=== PATIENT | female | born 1950 | race Caucasian/White ===

== ENCOUNTER 2023-08-01 05:38 | Emergency (ER) | payer BC ==
[~2023-08-01] VITALS: Ht 160 cm; Wt 75.9 kg
[2023-08-01 05:52] VITALS: TEMP 97.7
[2023-08-01 08:47] LABS: BASOPHILS % (AUTO) 0.6 % (0-1); EOSINOPHILS # (AUTO) 0.1 X10'3 (0-0.9); EOSINOPHILS % (AUTO) 1.7 % (0-6); HEMOGLOBIN 15.6 g/dl (12.0-16.0); LYMPHOCYTES # (AUTO) 1.5 X10'3 (1.1-4.8)
[2023-08-01 08:49] LABS: HEMATOCRIT 45.6 % (35.0-45.0); LYMPHOCYTES % (AUTO) 26.5 % (21-51); MEAN CORPUSCULAR HGB CONC 34.3 g/dL (33.0-36.5); MEAN CORPUSCULAR VOLUME 99.3 FL (78-98); MEAN PLATELET VOLUME 8.6 FL (7.4-10.4); MONOCYTES # (AUTO) 0.5 X10'3 (0-0.9); MONOCYTES % (AUTO) 9.5 % (2-12); NEUTROPHILS # (AUTO) 3.5 X10'3 (1.8-7.7); NEUTROPHILS % (AUTO) 61.7 % (42-75); PLATELET COUNT 277 X10'3 (140-440); RED BLOOD COUNT 4.59 X10'6 (4.20-5.60); WHITE BLOOD COUNT 5.7 X10'3 (4.5-11.0)
[2023-08-01 09:04] LABS: ALANINE AMINOTRANSFERASE 20 U/L (12-78); ALBUMIN 3.5 G/DL (3.4-5.0); ALBUMIN/GLOBULIN RATIO 0.7 (1.1-1.5); ALKALINE PHOSPHATASE 83 IU/L (46-116); ANION GAP 6 (8-16); ASPARTATE AMINO TRANSFERASE 15 U/L (10-37); BILIRUBIN,TOTAL 0.7 MG/DL (0.1-1.0); BLOOD UREA NITROGEN 8 MG/DL (7-18); BUN/CREATININE RATIO 9.4 (10.0-20.0); CALCIUM 9.3 MG/DL (8.5-10.1); CHLORIDE 101 MMOL/L (99-107); CREATININE 0.85 MG/DL (0.40-0.90); GLUCOSE 109 MG/DL (70-104); LIPASE 26 U/L (16-77); POTASSIUM 3.3 MMOL/L (3.5-5.1); SODIUM 136 MMOL/L (135-145); TOTAL CARBON DIOXIDE 28.8 MMOL/L (24-32); TOTAL PROTEIN 8.3 G/DL (6.4-8.2); eCRCL 48 ML/MIN; eGFR 65 ML/MIN
[2023-08-01 09:18] LABS: TOTAL CELLS COUNTED 100
[2023-08-01 09:19] LABS: PLATELET ESTIMATE NORMAL; POIKILOCYTOSIS FEW
[2023-08-01 10:30] LABS: APTT 36 SECONDS (22-32)
[2023-08-01 10:39] LABS: EOSINOPHILS # (AUTO) 0.1 X10'3 (0-0.9); LYMPHOCYTES # (AUTO) 1.8 X10'3 (1.1-4.8); MEAN CORPUSCULAR HEMOGLOBIN 33.9 PG (27.0-31.0); MONOCYTES # (AUTO) 0.5 X10'3 (0-0.9)
[2023-08-01 10:41] LABS: BASOPHILS % (AUTO) 0.5 % (0-1); EOSINOPHILS % (AUTO) 1.6 % (0-6); HEMATOCRIT 47.4 % (35.0-45.0); HEMOGLOBIN 16.1 g/dl (12.0-16.0); LYMPHOCYTES % (AUTO) 30.3 % (21-51); MEAN CORPUSCULAR HGB CONC 33.9 g/dL (33.0-36.5); MEAN CORPUSCULAR VOLUME 100.1 FL (78-98); MEAN PLATELET VOLUME 8.7 FL (7.4-10.4); MONOCYTES % (AUTO) 7.9 % (2-12); NEUTROPHILS # (AUTO) 3.5 X10'3 (1.8-7.7); NEUTROPHILS % (AUTO) 59.7 % (42-75); PLATELET COUNT 251 X10'3 (140-440); RED BLOOD COUNT 4.74 X10'6 (4.20-5.60); RED CELL DISTRIBUTION WIDTH 14.2 % (11.5-14.5)
[2023-08-01 10:45] LABS: BILIRUBIN,URINE NEGATIVE (Neg); CLARITY,URINE SLIGHTLY CLOUDY (Clear); COLOR,URINE YELLOW (Yellow); GLUCOSE, URINE NEGATIVE (Neg); KETONES,URINE 15 mg/dl (Neg); LEUKOCYTE ESTERASE ,URINE TRACE (Neg); NITRITES, URINE NEGATIVE (Neg); OCCULT BLOOD,URINE TRACE-INTACT (Neg); PROTEIN,URINE NEGATIVE (Neg); UROBILINOGEN,URINE 0.2 E.U/dL (0.2-1.0)
[2023-08-01 10:50] LABS: UA COLLECTION TYPE CLN CATCH MIDSTREAM
[2023-08-01 10:54] LABS: MUCUS STRANDS FEW /LPF (Neg); SQUAMOUS EPITHELIAL CELL,UR MODERATE /LPF (FEW)
[2023-08-01 10:55] LABS: BACTERIA,URINE 1+ /HPF (Neg)
[2023-08-01 10:56] LABS: RBC,URINE 0-2 /HPF (0-2); TRANSITIONAL EPI CELLS,URINE FEW /HPF
[2023-08-01 11:41] VITALS: BP 161/88; PULSE 68; O2SAT 97
[2023-08-01 12:48] VITALS: RESP 15
[2023-08-01] MEDS: CefTRIAXone/D5W-Rocephin 1gm 50 ML IV ONE (12:58)
[2023-08-01] MEDS: normal saline 1000ML IV soln IVB ONE (13:02)
[2023-08-01] MEDS ORDERED: CEPH250T PO (14:14)
== END 2023-08-01 14:54 | disposition home or self-care (01) ==
LOC: ER 05:40
DX: N39.0 Urinary tract infection, site not specified (principal); R10.9 Unspecified abdominal pain; K59.00 Constipation, unspecified; R30.0 Dysuria; Z88.1 Allergy status to other antibiotic agents
CPT/HCPCS: 36415; 74176; 80053; 81001; 83605; 83690; 85007; 85025; 85610; 85730; 87040; 87088; 96365; 99285; J0696; J7030